=== PATIENT | female | born 1975 | race American Indian/Alaskan Native ===

== ENCOUNTER 2018-09-14 09:35 | Emergency (ER) | payer OTHER ==
[2018-09-14 09:48] VITALS: RESP 18; TEMP 98.4
--- NOTE | 2018-09-14 09:58 | ED PDOC ---
Arrival/HPI - General Chief Complaint: Upper Extremity Problem/Injury Time Seen by Provider: 09/14/18 09:47 Historian: Patient - History of Present Illness Narrative History of Present Illness (Text): 09/14/18 09:54 43 y/o female, no significant pmh, c/o rt. hand thumb pain x 1 month s/p fall and rt. ear pain x 5 months with no fall or trauma. Pt. stated that she fall on the rt. hand thumb about 1 month ago after the fall, aching pain, been having pain, never resolved pain, no wrist pain. Pt. stated that she has rt. ear discomfort on and off for 5 months, no headache or night sweat, no rash, no dizziness, no change in vision. Past Medical History - Provider Review Nursing Documentation Reviewed: Yes - Reproductive Menopause: No - Cardiac Hx Cardiac Disorders: No - Pulmonary Hx Asthma: Yes - Endocrine/Metabolic Hx Endocrine Disorders: No - Hematological/Oncological Hx Blood Disorders: No - Psychiatric Hx Substance Use: No - Surgical History Other/Comment: abd hernia - Anesthesia Hx Anesthesia: Yes Hx Anesthesia Reactions: No Family/Social History - Physician Review Nursing Documentation Reviewed: Yes Family/Social History: Unknown Family HX Smoking Status: Current Some Days Smoker Hx Alcohol Use: No Hx Substance Use: No Allergies/Home Meds Allergies/Adverse Reactions: Allergies shellfish derived Allergy (Verified 09/14/18 09:48) RASH Review of Systems - Review of Systems Constitutional: absent: Fatigue, Fevers Eyes: absent: Vision Changes ENT: Other (rt. ear pain). absent: Hearing Changes Respiratory: absent: SOB, Cough Cardiovascular: absent: Chest Pain Gastrointestinal: absent: Abdominal Pain, Diarrhea, Nausea, Vomiting Musculoskeletal: Arthralgias. absent: Back Pain, Neck Pain, Myalgias Skin: absent: Rash, Pruritis Neurological: absent: Headache, Dizziness Psychiatric: absent: Anxiety, Depression, Suicidal Ideation Physical Exam Vital Signs Reviewed: Yes Vital Signs Temp Pulse Resp BP Pulse Ox 09/14/18 09:44 98.4 F 70 18 149/84 100 Temperature: Afebrile Blood Pressure: Normal Pulse: Regular Respiratory Rate: Normal Appearance: Positive for: Well-Appearing, Non-Toxic, Comfortable Pain Distress: Mild Mental Status: Positive for: Alert and Oriented X 3 - Systems Exam Head: Present: Atraumatic, Normocephalic Pupils: Present: PERRL Extroacular Muscles: Present: EOMI Conjunctiva: Present: Normal Ears: Present: Other (Ears: rt. TM emanuel color and intact, lt. TM emanuel color and intact, bilateral auditory canals non-erythematous, no mastoid tenderness. ) Mouth: Present: Moist Mucous Membranes Pharnyx: No: ERYTHEMA, EXUDATE, TONSILS ENLARGED Nose (External): Present: Atraumatic. No: Abrasion, Contusion Nose (Internal): Present: Normal Inspection, No Active Bleeding. No: Rhinorrhea, Septal Hematoma, Epistaxis Neck: Present: Normal Range of Motion, Trachea Midline. No: Meningeal Signs, MIDLINE TENDERNESS, Paraspinal Tenderness, Lymphadenopathy Respiratory/Chest: Present: Clear to Auscultation, Good Air Exchange. No: Respiratory Distress, Accessory Muscle Use Cardiovascular: Present: Regular Rate and Rhythm, Normal S1, S2. No: Murmurs Abdomen: No: Tenderness, Distention, Peritoneal Signs, Rebound, Guarding Back: Present: Normal Inspection Upper Extremity: Present: Normal Inspection, Other (Rt. hand/wrist: +ttp on the rt. hand 1st digit MCP region with no swelling, no wrist tenderness or swelling, no scaphoid tenderness, FROM without limitation, sensation intact, motor 5/5, +radial pulse, capillary refill< 2 seconds, neurovascular intact. ). No: Cyanosis, Edema Lower Extremity: Present: Normal Inspection. No: Edema Neurological: Present: GCS=15, CN II-XII Intact, Speech Normal, Motor Func Grossly Intact, Gait Normal, Memory Normal Skin: Present: Warm, Dry, Normal Color. No: Rashes Psychiatric: Present: Alert, Oriented x 3, Normal Insight, Normal Concentration Medical Decision Making ED Course and Treatment: 09/14/18 09:58 -xray -offered pain med and refused. 09/14/18 10:49 -Urine hcg is negative -Rt. hand xray: ER wet read show no fracture/dislocation. -Thumb spica splint applied with neurovascular intact. -Discharge home with amoxicillin, thumb spica splint, motrin, follow up with your own pmd and ENT/orthopedic within 2 days, return to the ER for any new or worsening signs or symptoms. - RAD Interpretation Radiology Orders: 09/14/18 09:53 HAND RIGHT THUMB [RAD] Stat Rt. hand xray: Date of service: 09/14/2018 PROCEDURE: Right Thumb radiographs. HISTORY: rt. hand thumb injury x 1 month, pain COMPARISON: None. TECHNIQUE: AP radiograph of the right hand, as well as spot oblique and lateral images of thumb were obtained. FINDINGS: RIGHT THUMB: Normal right thumb, without fracture or focal lesion. Remainder of the right hand (as seen on the AP view) grossly unremarkable. JOINTS: Normal. SOFT TISSUES: Normal. OTHER FINDINGS: None. IMPRESSION: Normal right thumb radiographs. Litigation Partner: Radiologist - PA / VENEER SAWYER / Resident Statement / has reviewed & agrees with the documentation as recorded. Disposition/Present on Arrival - Present on Arrival Any Indicators Present on Arrival: No History of DVT/PE: No History of Uncontrolled Diabetes: No Urinary Catheter: No History of Decub. Ulcer: No History Surgical Site Infection Following: None - Disposition Have Diagnosis and Disposition been Completed?: Yes Diagnosis: Otitis media, Thumb injury, Thumb pain Disposition: HOME/ ROUTINE Disposition Time: 10:50 Patient Plan: Discharge Condition: IMPROVED Additional Instructions: -Discharge home with amoxicillin, thumb spica splint, motrin, follow up with your own pmd and ENT/orthopedic within 2 days, return to the ER for any new or worsening signs or symptoms. Prescriptions: Amoxicillin 875 mg PO BID #20 tab Ibuprofen [Motrin Tab] 600 mg PO QID PRN #30 tab PRN Reason: Other Referrals: Audie Lopez MD [Primary Care Provider] - Follow up with primary Arvind Abarca DO [Staff Provider] - Follow up with primary Tia Donohue MD [Staff Provider] - Follow up with primary Forms: [employer] (Romans[employer]), WORK NOTE
[2018-09-14 11:07] VITALS: BP 132/78; PULSE 78; O2SAT 98
--- NOTE | 2018-09-14 13:41 | RAD ---
Date of service: 09/14/2018 PROCEDURE: Right Thumb radiographs. HISTORY: rt. hand thumb injury x 1 month, pain COMPARISON: None. TECHNIQUE: AP radiograph of the right hand, as well as spot oblique and lateral images of thumb were obtained. FINDINGS: RIGHT THUMB: Normal right thumb, without fracture or focal lesion. Remainder of the right hand (as seen on the AP view) grossly unremarkable. JOINTS: Normal. SOFT TISSUES: Normal. OTHER FINDINGS: None. IMPRESSION: Normal right thumb radiographs. Concordant results with the preliminary interpretation rendered by the emergency department physician procedure.
== END 2018-09-14 11:07 | disposition home or self-care (01) ==
LOC: ED 09:35
DX: S69.91XA Unspecified injury of right wrist, hand and finger(s), initial encounter (principal); W19.XXXA Unspecified fall, initial encounter; H66.90 Otitis media, unspecified, unspecified ear; M79.644 Pain in right finger(s)